=== PATIENT | male | born 1935 | race Caucasian/White ===

== ENCOUNTER 2019-07-24 09:14 | Observation (INO) ==
[2019-07-24 11:01] LABS: BASOPHILS # (AUTO) 0.1 X10^3/uL (0.0-0.1); BASOPHILS % (AUTO) 0.7 % (0.2-1.0); EOSINOPHILS % (AUTO) 0.1 % (0.9-2.9); HEMATOCRIT 39.2 % (42.0-54.0); HEMOGLOBIN 13.5 g/dL (13.5-18.0); LYMPHOCYTES # (AUTO) 1.5 X10^3/uL (1.3-2.9); MEAN CORPUSCULAR HEMOGLOBIN 32.3 pg (27.0-34.0); MEAN CORPUSCULAR HGB CONC 34.4 g/dL (33.0-35.0); MEAN CORPUSCULAR VOLUME 93.8 fL (80.0-100.0); MEAN PLATELET VOLUME 7.3 fL (7.4-11.0); MONOCYTES # (AUTO) 0.5 x10^3/uL (0.3-0.8); MONOCYTES % (AUTO) 6.2 % (0.0-13.0); NEUTROPHILS # (AUTO) 5.3 x10^3/uL (2.2-4.8); PLATELET COUNT 205 X10^3/uL (150.0-450.0); RED BLOOD COUNT 4.18 X10^6/uL (4.7-6.0); RED CELL DISTRIBUTION WIDTH 13.7 % (11.6-16.5); WHITE BLOOD COUNT 7.3 X10^3/uL (3.6-10.0)
[2019-07-24 11:21] LABS: ALANINE AMINOTRANSFERASE 22 Units/L (12-78); ALBUMIN 3.4 g/dL (3.4-5.0); ALKALINE PHOSPHATASE 15 Units/L (46-116); ASPARTATE AMINO TRANSFERASE 37 Units/L (15-37); BLOOD UREA NITROGEN 25 mg/dL (7-18); CALCIUM 9.6 mg/dL (8.5-10.1); CARBON DIOXIDE 38.8 mmol/L (21-32); CHLORIDE 91 mmol/L (98-107); CREATININE 1.89 mg/dL (0.70-1.30); SODIUM 130 mmol/L (136-145); TOTAL PROTEIN 6.7 g/dL (6.4-8.2); eGFR NON BLACK RACES 36 (>60)
[2019-07-24] MEDS: NS 1000 ML 1,000 ML IV SCH ×2 (11:22→18:50)
[2019-07-24 12:04] VITALS: BMI 13.3
--- NOTE | 2019-07-24 12:11 | RAD ---
HISTORYFAILURE TO THRIVE, AORTIC STENOSISSTUDYCHEST, PA/LAT ADULTCOMPARISONCT dated 09/06/2018FINDINGSNormal heart size and mediastinum within normal limits. There are some calcified lymph nodes in the hilar region. There is again seen a focal subpleural radiopacity along the right upper lobe with nodularity. There is also focal nodules in the left upper. No evidence of focal pneumonia pneumothorax or pleural effusionIMPRESSIONBiapical subpleural radiopacities with multiple nodules right more than left grossly unchanged since prior CT. No evidence of acute pneumonia or pleural effusions.Electronically signed by: Tarsha Hoffman (Jul 24, 2019 12:10:46)
[2019-07-24] MEDS: CYTOTEC PO SCH (21:23)
[2019-07-24] MEDS: PROTONIX TAB 40 MG PO SCH (21:24)
[2019-07-24] MEDS: RESTORIL CAP 15 MG PO PRN (21:24)
[2019-07-24] MEDS ORDERED: ZOFRAN TAB 4 MG PO PRN (23:08)
[2019-07-24] MEDS ORDERED: NS 1000 ML 1,000 ML IV ONE (23:16)
[2019-07-25] MEDS ORDERED: ZOFRAN TAB 4 MG PO PRN (00:16)
[2019-07-25] MEDS: NS 1000 ML 1,000 ML IV SCH ×4 (04:34→22:00)
[2019-07-25 06:34] LABS: BASOPHILS % (AUTO) 0.6 % (0.2-1.0); EOSINOPHILS % (AUTO) 0.4 % (0.9-2.9); HEMATOCRIT 39.5 % (42.0-54.0); HEMOGLOBIN 13.5 g/dL (13.5-18.0); LYMPHOCYTES # (AUTO) 2.1 X10^3/uL (1.3-2.9); LYMPHOCYTES % (AUTO) 28.8 % (21.0-51.0); MEAN CORPUSCULAR HEMOGLOBIN 32.4 pg (27.0-34.0); MEAN CORPUSCULAR HGB CONC 34.2 g/dL (33.0-35.0); MEAN CORPUSCULAR VOLUME 94.9 fL (80.0-100.0); MEAN PLATELET VOLUME 7.2 fL (7.4-11.0); MONOCYTES # (AUTO) 0.5 x10^3/uL (0.3-0.8); MONOCYTES % (AUTO) 6.5 % (0.0-13.0); NEUTROPHILS # (AUTO) 4.5 x10^3/uL (2.2-4.8); NEUTROPHILS % (AUTO) 63.7 % (42.0-75.0); PLATELET COUNT 179 X10^3/uL (150.0-450.0); RED BLOOD COUNT 4.16 X10^6/uL (4.7-6.0); RED CELL DISTRIBUTION WIDTH 13.8 % (11.6-16.5); WHITE BLOOD COUNT 7.1 X10^3/uL (3.6-10.0)
[2019-07-25 06:50] LABS: TOTAL PSA 0.56 ng/mL (0.13-4.0)
[2019-07-25 06:52] LABS: ALANINE AMINOTRANSFERASE 18 Units/L (12-78); ALBUMIN 3.3 g/dL (3.4-5.0); ALKALINE PHOSPHATASE 17 Units/L (46-116); ASPARTATE AMINO TRANSFERASE 38 Units/L (15-37); BLOOD UREA NITROGEN 21 mg/dL (7-18); CALCIUM 8.8 mg/dL (8.5-10.1); CHLORIDE 96 mmol/L (98-107); COR CA(FOR HYPOALB) 9.4 mg/dL (8.5-10.1); CREATININE 1.42 mg/dL (0.70-1.30); MAGNESIUM 1.6 mg/dL (1.7-2.9); SODIUM 132 mmol/L (136-145); TOTAL PROTEIN 6.6 g/dL (6.4-8.2); eGFR NON BLACK RACES 51 (>60)
[2019-07-25 08:30] LABS: BILIRUBIN,URINE NEGATIVE (NEGATIVE); BLOOD/HEMOGLOBIN,URINE 1+ (NEGATIVE); GLUCOSE, URINE NEGATIVE (NEGATIVE); KETONES,URINE 1+ (NEGATIVE); LEUKOCYTE ESTERASE ,URINE NEGATIVE (NEGATIVE); NITRITES,URINE NEGATIVE (NEGATIVE); PH,URINE 6.5 (5.0 - 8.0); PROTEIN,URINE NEGATIVE (NEGATIVE); UROBILINOGEN,URINE NORMAL (NORMAL)
[2019-07-25 08:48] LABS: APPEARANCE,URINE CLEAR (CLEAR); COLOR,URINE YELLOW (YELLOW)
[2019-07-25 08:49] LABS: AMORPHOUS SEDIMENT,UR TRACE /HPF (NEGATIVE); BACTERIA,URINE NEGATIVE /HPF (NEGATIVE); SQUAMOUS EPITHELIAL CELL,UR RARE /HPF (NEGATIVE)
[2019-07-25] MEDS ORDERED: MEGESTROL PO SCH (09:00)
[2019-07-25] MEDS ORDERED: MICRO K EXTEN CAP 10 MEQ PO SCH (09:00)
[2019-07-25] MEDS ORDERED: DEPO-TESTOSTERONE IM ONE (09:13)
[2019-07-25] MEDS ORDERED: LEXAPRO ONE (09:28)
[2019-07-25] MEDS: CYTOTEC PO SCH ×2 (09:29→20:22)
[2019-07-25] MEDS: LANOXIN PO SCH (09:31)
[2019-07-25] MEDS: LEXAPRO PO SCH (09:32)
[2019-07-25] MEDS: MAGNESIUM SULFATE 1 GRAM/100 mL PREMIX 2 G/200 ML BAG IV SCH ×2 (09:32→10:49)
[2019-07-25] MEDS: WELLBUTRIN XL 150 MG (DAILY) PO SCH (09:33)
[2019-07-25] MEDS: XANAX PO SCH ×2 (09:33→20:22)
[2019-07-25] MEDS: PROTONIX TAB 40 MG PO SCH (09:33)
[2019-07-25] MEDS: ZESTRIL TAB 5 MG PO SCH (09:34)
[2019-07-25] MEDS: ZETIA TAB 10 MG PO SCH (09:35)
[2019-07-25] MEDS: SYNTHROID 50 mcg TAB PO SCH ×2 (09:38→16:28)
[2019-07-25] MEDS ORDERED: DIPRIVAN VIAL 20 ML ONE (12:55)
[2019-07-25] MEDS ORDERED: EPHEDRINE SULFATE INJ ONE (13:18)
--- NOTE | 2019-07-25 14:53 | OR.IMMED ---
Immediate Post-Op Note - Immediate Post-Op Note Pre-Op Diagnosis: dysphagia , GI bleeding , Wt loss . Post-Op Diagnosis: esophagitis ,. errosive gastritis . no active bleeding . Procedure: EGD with Bx Surgeon/Surgical Pathologist: Charlotte. Specimens Removed: Bx from fundus , Antrum and Du . Drains: NONE Condition: Stable (on IVF, Carafate , Diflucan , Protonix)
[2019-07-25] MEDS: PROTONIX INJ 40 MG VIAL IVP SCH (20:23)
[2019-07-25] MEDS ORDERED: SINGULAIR TAB 10 MG PO SCH (21:00)
[2019-07-25] MEDS ORDERED: METOPROLOL 12.5 MG PO SCH (21:00)
[2019-07-25] MEDS ORDERED: TOPROL XL PO SCH (21:00)
[2019-07-25] MEDS: RESTORIL CAP 15 MG PO PRN (23:26)
[2019-07-26] MEDS: NS 1000 ML 1,000 ML IV SCH ×3 (03:50→04:48)
[2019-07-26] MEDS ORDERED: LEXAPRO ONE ×2 (08:16→15:17)
[2019-07-26] MEDS: XANAX PO SCH (08:22)
[2019-07-26] MEDS: CYTOTEC PO SCH (08:22)
[2019-07-26] MEDS: LEXAPRO PO SCH (08:23)
[2019-07-26] MEDS: PROTONIX INJ 40 MG VIAL IVP SCH (08:23)
[2019-07-26] MEDS: ZETIA TAB 10 MG PO SCH (08:23)
[2019-07-26] MEDS: LANOXIN PO SCH (08:23)
[2019-07-26] MEDS: WELLBUTRIN XL 150 MG (DAILY) PO SCH (08:24)
[2019-07-26] MEDS: ZESTRIL TAB 5 MG PO SCH (08:24)
[2019-07-26] MEDS ORDERED: DIFLUCAN 100 MG IV (MIX by PHARMACY)* 100 MG/50 ML BAG IV SCH (09:00)
[2019-07-26 12:24] VITALS: BP 129/64
[2019-07-26 13:03] LABS: BASOPHILS % (AUTO) 0.5 % (0.2-1.0); EOSINOPHILS % (AUTO) 0.2 % (0.9-2.9); HEMATOCRIT 37.6 % (42.0-54.0); HEMOGLOBIN 12.7 g/dL (13.5-18.0); LYMPHOCYTES # (AUTO) 1.2 X10^3/uL (1.3-2.9); LYMPHOCYTES % (AUTO) 18.3 % (21.0-51.0); MEAN CORPUSCULAR HEMOGLOBIN 32.3 pg (27.0-34.0); MEAN CORPUSCULAR HGB CONC 33.7 g/dL (33.0-35.0); MEAN CORPUSCULAR VOLUME 95.9 fL (80.0-100.0); MEAN PLATELET VOLUME 7.5 fL (7.4-11.0); MONOCYTES # (AUTO) 0.4 x10^3/uL (0.3-0.8); MONOCYTES % (AUTO) 6.7 % (0.0-13.0); NEUTROPHILS # (AUTO) 4.7 x10^3/uL (2.2-4.8); NEUTROPHILS % (AUTO) 74.3 % (42.0-75.0); PLATELET COUNT 164 X10^3/uL (150.0-450.0); RED BLOOD COUNT 3.92 X10^6/uL (4.7-6.0); RED CELL DISTRIBUTION WIDTH 13.8 % (11.6-16.5); WHITE BLOOD COUNT 6.4 X10^3/uL (3.6-10.0)
[2019-07-26 13:11] LABS: ALANINE AMINOTRANSFERASE 16 Units/L (12-78); ALBUMIN 2.7 g/dL (3.4-5.0); ALKALINE PHOSPHATASE 17 Units/L (46-116); ASPARTATE AMINO TRANSFERASE 30 Units/L (15-37); BLOOD UREA NITROGEN 10 mg/dL (7-18); CALCIUM 8.3 mg/dL (8.5-10.1); CARBON DIOXIDE 31.6 mmol/L (21-32); CHLORIDE 100 mmol/L (98-107); COR CA(FOR HYPOALB) 9.3 mg/dL (8.5-10.1); CREATININE 1.15 mg/dL (0.70-1.30); MAGNESIUM 1.8 mg/dL (1.7-2.9); SODIUM 135 mmol/L (136-145); TOTAL PROTEIN 5.6 g/dL (6.4-8.2); eGFR NON BLACK RACES > 60 (>60)
[2019-07-26] MEDS ORDERED: NYSTATIN SUSP ONE (15:16)
[2019-07-26] MEDS ORDERED: CARAFATE ONE (15:17)
[2019-07-26] MEDS ORDERED: DIFLUCAN ONE (15:18)
== END 2019-07-26 16:25 | disposition home or self-care (01) ==
LOC: MED/SURG
PROVIDERS: ADMIT Obstetrics & Gynecology Obstetrics; ATTEND Obstetrics & Gynecology Obstetrics
DX: K21.9 Gastro-esophageal reflux disease without esophagitis; R13.11 Dysphagia, oral phase; R63.0 Anorexia; K92.2 Gastrointestinal hemorrhage, unspecified; I10 Essential (primary) hypertension; F32.89 Other specified depressive episodes; Z11.59 Encounter for screening for other viral diseases; R55 Syncope and collapse; Z79.01 Long term (current) use of anticoagulants; E29.1 Testicular hypofunction; I25.10 Atherosclerotic heart disease of native coronary artery without angina pectoris; R62.7 Adult failure to thrive; K22.10 Ulcer of esophagus without bleeding; E03.8 Other specified hypothyroidism
CPT/HCPCS: 36415; 71020; 71046; 80053; 81001; 82670; 83735; 84153; 84403; 84443; 85025; 87635; 96360; 96361; 96372; 97110; 97112; 97162; 97166; 99100; A4222; C9113; G0378; J1450; J3475; J7030; S0106; S0191